=== PATIENT | female | born 1975 ===

== ENCOUNTER 2021-03-24 11:12 | Outpatient (CLI) | payer OTHER | END 2021-03-24 11:17 | disposition home or self-care (01) | LOC: MAMO-SONO 11:12 | PROVIDERS: ATTEND Specialist | DX: N60.11 Diffuse cystic mastopathy of right breast (principal); N60.12 Diffuse cystic mastopathy of left breast ==

== ENCOUNTER → 2021-05-10 | Outpatient (CLI) | payer OTHER | END | disposition home or self-care (01) | LOC: MAMO-SONO 04-23 14:45 → SONOGRAMA 13:57 → MAMO-SONO 14:15 | PROVIDERS: ATTEND Specialist | DX: R10.31 Right lower quadrant pain (principal); R10.32 Left lower quadrant pain ==